=== PATIENT | female | born 1980 | race Caucasian/White ===

== ENCOUNTER → 2016-12-09 | Outpatient (CLI) | payer MEDICAID ==
--- NOTE | 2016-12-09 08:55 | US ---
EXAMINATION TYPE: US thyroid st tissue head/neck DATE OF EXAM: 12/09/2016 COMPARISON: NONE CLINICAL HISTORY: 36-year-old female E04.1 Thyroid Nodule. TECHNIQUE: Multiple sonographic images of the thyroid gland are obtained. FINDINGS: Right Lobe: 3.6 x 1.6 x 1.4 cm Left Lobe: 2.4 x 0.9 x 1.0 cm Isthmus Thickness: 0.3 cm There is diffuse glandular heterogeneity without discrete nodule. Bilateral neck scanned, no evidence of lymphadenopathy. IMPRESSION: Heterogeneous parenchyma with somewhat small thyroid gland. No discrete nodule.
== END | disposition home or self-care (01) ==
LOC: RADUSWWP 07:25
PROVIDERS: ATTEND Family Medicine
DX: E07.89 Other specified disorders of thyroid (principal)
CPT/HCPCS: 76536

== ENCOUNTER → 2019-03-15 | Outpatient (CLI) | payer MEDICAID ==
--- NOTE | 2019-03-15 11:17 | XR ---
Right hip HISTORY: Pain in right hip 2 views of the right hip Bone mineralization, joint spaces and alignment are maintained. Mild hypertrophic changes are present especially at the acetabulum, correlate for possible femoral acetabular impingement. No fracture or dislocation. IMPRESSION: No acute findings. Additional findings above. Hip MRI may be of benefit.
== END | disposition home or self-care (01) ==
LOC: RADXRMAIN 09:46
PROVIDERS: ATTEND Family Medicine
DX: M25.551 Pain in right hip (principal)
CPT/HCPCS: 73502

== ENCOUNTER → 2019-05-22 | Outpatient (CLI) | payer MEDICAID ==
--- NOTE | 2019-05-22 08:52 | US ---
EXAMINATION TYPE: US abdomen complete DATE OF EXAM: 05/22/2019 COMPARISON: NONE CLINICAL HISTORY: R10.11 RUQ Abd pain. EXAM MEASUREMENTS: Liver Length: 12.8 cm Gallbladder Wall: 0.3 cm CBD: 0.2 cm Spleen: 12.4 cm Right Kidney: 11.4 x 4.8 x 4.8 cm Left Kidney: 12.1 x 4.5 x 5.1 cm Pancreas: wnl Liver: wnl Gallbladder: cholelithiasis Evidence for sonographic Hurley's sign: CBD: wnl Spleen: wnl Right Kidney: scattered echogenic foci noted probable stones, small cyst measuring 1.2 x 1.2 x 1.3cm Left Kidney: probable stone measuring 0.5 x 0.4 x 0.6cm Upper IVC: wnl Abd Aorta: bifurcation obscured by overlying bowel gas The liver is homogenous. The intrahepatic portion of the IVC and proximal abdominal aorta are within normal limits. There is evidence of cholelithiasis with gallstone in the region of the gallbladder n dann. No wall thickening or pericholecystic fluid. Common bile duct is unremarkable. The visualized p ortions of the pancreas are homogenous. The spleen is unremarkable. Kidneys are symmetric and free of hydronephrosis. Nonobstructing nephrolithiasis seen bilaterally. IMPRESSION: 1. gallstone in the region of the gallbladder neck. 2. Nonobstructing nephrolithiasis seen bilaterally.
== END | disposition home or self-care (01) ==
LOC: RADUSWWP 07:36
PROVIDERS: ATTEND Family Medicine
DX: K80.20 Calculus of gallbladder without cholecystitis without obstruction (principal); N20.0 Calculus of kidney
CPT/HCPCS: 76700

== ENCOUNTER 2019-10-16 22:34 | Emergency (ER) | payer MEDICAID, OTHER ==
[2019-10-16 22:40] VITALS: RESP 18
[2019-10-16] MEDS ORDERED: IBUPROFEN 600 MG TAB PO STA (22:47)
--- NOTE | 2019-10-16 23:10 | XR ---
EXAMINATION TYPE: XR foot complete RT DATE OF EXAM: 10/16/2019 COMPARISON: NONE HISTORY: Pain TECHNIQUE: 3 views FINDINGS: There is a transverse fracture across the base of the fifth metatarsal. Fracture appears to be healing. There is callus formation. There is no dislocation. Joint spaces are fairly normal. IMPRESSION: Healing nondisplaced fracture of the base of the fifth metatarsal.
--- NOTE | 2019-10-16 23:12 | XR ---
EXAMINATION TYPE: XR ankle complete RT DATE OF EXAM: 10/16/2019 COMPARISON: None. History pain. Comparison none. FINDINGS: Ankle mortise is anatomic. Joint spaces are normal. There is nondisplaced transverse fracture across the base of the fifth metatarsal. There is some mild callus formation. There is an Achilles calcaneal spur. TECHNIQUE: 3 views IMPRESSION: Healing fracture base of the fifth metatarsal. Mild calcaneal spurring.
--- NOTE | 2019-10-16 23:21 | ED ---
General Adult HPI - General Chief complaint: Extremity Injury, Lower Stated complaint: [facility] foot injury Time Seen by Provider: 10/16/19 22:44 Source: patient, RN notes reviewed, old records reviewed Mode of arrival: ambulatory Limitations: no limitations - History of Present Illness Initial comments: 38-year-old female patient presents ED for chief complaint of right foot injury. Patient reports that she was walking at a fairly rapid pace when she rolled her right ankle and felt a pop. Patient is complaining of pain in the right fifth metatarsal region. Patient reports that she does have a history of a fracture in this region which did not require surgery. Patient is having some swelling on the fifth metatarsal region. Denies any other complaints. Systemic: Pt denies fatigue, fever/chills, rash. Pt denies weakness, night sweats, weight loss. Neuro: Pt denies headache, visual disturbances, syncope or pre-syncope. HEENT: Pt denies ocular discharge or irritation, otalgia, rhinorrhea, pharyngitis or notable lymphadenopathy. Cardiopulmonary: Pt denies chest pain, SOB, heart palpitations, dyspnea on exertion. Abdominal/GI: Pt denies abdominal pain, n/v/d. : Pt denies dysuria, burning w/ urination, frequency/urgency. Denies new onset urinary or bowel incontinence. MSK: Pt denies myalgia, loss of strength or function in extremities. Neuro: Pt denies new onset weakness, paresthesias. - Related Data Allergies Allergy/AdvReac Type Severity Reaction Status Date / Time No Known Allergies Allergy Verified 10/16/19 22:39 Review of Systems ROS Statement: Those systems with pertinent positive or pertinent negative responses have been documented in the HPI. ROS Other: All systems not noted in ROS Statement are negative. Past Medical History Past Medical History: No Reported History, Hypertension, Thyroid Disorder Additional Past Medical History / Comment(s): anemia Past Surgical History: Section Past Psychological History: Anxiety, Depression General Exam - General Exam Comments Initial Comments: Constitutional: NAD, AOX3, Pt has pleasant affect. HEENT: NC/AT, trachea midline, neck supple, no lymphadenopathy. External ears appear normal, without discharge. Mucous membranes moist. Eyes PERRLA, EOM intact. There is no scleral icterus. No pallor noted. Cardiopulmonary: RRR, no murmurs, rubs or gallops, no JVD noted. Lungs CTAB in anterior and posterior lawler. No peripheral edema. Abdominal exam: Abdomen soft and non-distended. Abdomen non-tender to palpation in all 4 quadrants. Bowel sounds active in LLQ. No hepatosplenomegaly. No ecchymosis Neuro: CN II-XII grossly intact. No nuchal rigidity. No raccon eyes, no brady sign, no hemotympanum. No cervical spinal tenderness. MSK: Tenderness to the fifth metatarsal region. Neurovascularly intact. No other areas of tenderness. Some swelling is noted to the distal fifth metatarsal region. Posterior tibialis pulse +2. Limitations: no limitations Course Vital Signs 10/16/19 10/16/19 22:35 23:33 Temperature 98.0 F 98.6 F Pulse Rate 101 H 81 Respiratory 18 18 Rate Blood Pressure 170/78 134/93 O2 Sat by Pulse 100 100 Oximetry Medical Decision Making - Medical Decision Making 38-year-old female patient presents to ED for evaluation of right foot injury. Patient has a history of previous fifth metatarsal fracture. Patient will signs blood mild hypertension likely secondary to pain. Physical exam does light tenderness to fifth metatarsal region. There is some localized swelling. Neurovascularly intact. Plain films displayed healing non-displaced fracture of the base of fifth metatarsal. Patient will be placed in a posterior ankle splint. Will be discharged with outpatient with a follow-up. Advised to use crutches and not bear weight on right lower extremity. Case discussed with Dr. Early. Disposition Clinical Impression: Foot fracture Disposition: HOME SELF-CARE Condition: Stable Instructions (If sedation given, give patient instructions): Foot Fracture in Adults (ED) Additional Instructions: Follow-up with primary care provider tomorrow. Return to ER if condition w orsens in any way. Follow up with orthopedic consult tomorrow. Use crutches, do not bear weight on right lower extremity. Continue to wear splint. Is patient prescribed a controlled substance at d/c from ED?: No Referrals: Jonathan Macias DO [Primary Care Provider] - 1-2 days Keon Singh MD [Medical Doctor] - 1-2 days
[2019-10-16 23:34] VITALS: BP 134/93; PULSE 81; TEMP 98.6
== END 2019-10-16 23:39 | disposition home or self-care (01) ==
LOC: EC 22:34
DX: S92.354D Nondisplaced fracture of fifth metatarsal bone, right foot, subsequent encounter for fracture with routine healing (principal); I10 Essential (primary) hypertension; X50.1XXD Overexertion from prolonged static or awkward postures, subsequent encounter; Y92.69 Other specified industrial and construction area as the place of occurrence of the external cause; Y99.0 Civilian activity done for income or pay
CPT/HCPCS: 29515; 99284

== ENCOUNTER → 2021-02-27 | Outpatient (CLI) | payer MEDICAID ==
--- NOTE | 2021-02-27 13:40 | MM ---
Reason for exam: screening (asymptomatic). Baseline mammogram. History: Took hormonal contraceptives for 17 years. Physical Findings: Nurse Summary: 2cm hard palpable lump right axilla (nurse TM). MG 3D Screening Mammo W/Cad Bilateral CC and MLO view(s) were taken. The breast tissue is heterogeneously dense. This may lower the sensitivity of mammography. Focal asymmetry upper outer left breast. These results were verbally communicated with the patient and result sheet given to the patient on 02/27/21. ASSESSMENT: Incomplete: need additional imaging evaluation, BI-RAD 0 RECOMMENDATION: Special view mammogram of the left breast. Manage patient on a clinical basis.
--- NOTE | 2021-02-27 13:41 | MM ---
Reason for exam: additional evaluation requested from abnormal screening. History: Took hormonal contraceptives for 17 years. Physical Findings: Breast exam preformed at baseline screening. MG 3D Work Up W/Cad LT Spot compression CC and LM view(s) were taken of the left breast. Focal asymmetry upper outer quadrant persists 8.3cm from nipple and measures 8.2mm. These results were verbally communicated with the patient and result sheet given to the patient on 02/27/21. ASSESSMENT: Incomplete: need additional imaging evaluation, BI-RAD 0 RECOMMENDATION: Ultrasound of the left breast. Manage patient on a clinical basis.
--- NOTE | 2021-02-27 13:42 | USB ---
Reason for exam: additional evaluation requested from abnormal screening. History: Took hormonal contraceptives for 17 years. US Breast Workup Limited GEORGETTE Right limited breast ultrasound including focal area of concern, retroareolar and axilla demonstrates no cystic or solid lesion seen. Left limited breast ultrasound including focal area of concern, retroareolar and axilla demonstrates a 0.8 x 0.4 x 0.5cm cystic cluster at 3 o'clock. These results were verbally communicated with the patient and result sheet given to the patient on 02/27/21. ASSESSMENT: Benign, BI-RAD 2 RECOMMENDATION: Routine screening mammogram of both breasts in 1 year. Manage patient on a clinical basis.
== END | disposition home or self-care (01) ==
LOC: RADMAMWWP 07:56
PROVIDERS: ATTEND Family Medicine
DX: Z12.31 Encounter for screening mammogram for malignant neoplasm of breast (principal); R92.8 Other abnormal and inconclusive findings on diagnostic imaging of breast
CPT/HCPCS: 77061; 77063; 77065; 77067

== ENCOUNTER → 2021-03-02 | Outpatient (CLI) | payer MEDICAID, OTHER | END | disposition home or self-care (01) | LOC: LABWHC1 12:22 | PROVIDERS: ATTEND Emergency Medicine | DX: Z20.828 Contact with and (suspected) exposure to other viral communicable diseases (principal) | CPT/HCPCS: 87635 ==

== ENCOUNTER → 2021-03-03 | Outpatient (CLI) | payer MEDICAID, OTHER | END | disposition home or self-care (01) | LOC: EC 12:30 | PROVIDERS: ATTEND Emergency Medicine | DX: Z20.822 Contact with and (suspected) exposure to COVID-19 (principal) | CPT/HCPCS: 87635 ==

== ENCOUNTER → 2021-05-01 | Outpatient (CLI) | payer MEDICAID ==
--- NOTE | 2021-05-01 19:25 | US ---
EXAMINATION TYPE: US thyroid st tissue head/neck DATE OF EXAM: 05/01/2021 COMPARISON: 12/09/2016 CLINICAL HISTORY: 40-year-old female E04.9 Nontoxic goiter. TECHNIQUE: Multiple sonographic images of the thyroid gland are obtained. FINDINGS: GLAND SIZE: Right Lobe: 3.4 x 1.6 x 1.5 cm Overall Parenchyma: heterogenous Left Lobe: 2.2 x 1.1 x 1.0 cm Overall Parenchyma: heterogeneous Isthmus Thickness: 0.3 cm NODULES RIGHT: # of nodules measured on right: 1 1. 0.9 X 0.8 x 0.8 cm, mid/lower, solid, TR 4 hypoechoic nodule, which is wider than tall, with ill -defined margins, without echogenic foci. Prior size: Not seen previously LEFT: # of nodules measured on left: 0 ISTHMUS: # of nodules measured in the isthmus: 0 IMPRESSION: 1. Redemonstrated small, heterogeneous thyroid gland. Possible goiter or sequela of chronic hypothyro idism. 2. New 9 mm solid TR 4 nodule on the right. Follow-up recommended.
== END | disposition home or self-care (01) ==
LOC: RADUSWWP 13:29
PROVIDERS: ATTEND Family Medicine
DX: E04.9 Nontoxic goiter, unspecified (principal)
CPT/HCPCS: 76536

== ENCOUNTER → 2022-06-05 | Outpatient (CLI) | payer MEDICAID ==
[2022-06-05 23:16] LABS: HCT 39.3 % (37.2-46.3); HGB 11.2 g/dL (12.0-15.0); MCH 22.7 pg (27.0-32.0); MCHC 28.5 g/dL (32.0-37.0); MCV 79.7 fL (80.0-97.0); Mean Platelet Volume 10.4 fL (9.5-12.2); NRBC Per 100 WBC 0 /100 WBCS (0.0-0.0); Platelet Count 347 X 10*3/uL (140-440); RBC 4.93 X 10*6/uL (4.10-5.20); RDW 25.8 % (11.5-14.5); WBC 11.67 X 10*3/uL (4.50-10.00)
[2022-06-05 23:44] LABS: Basophils % (A) 0.9 %; Eosinophils # (A) 0.39 X 10*3/uL (0.04-0.35); Eosinophils % (A) 3.3 %; Immature Grans, Automated 0.4 %; Lymphocytes # (A) 2.76 X 10*3/uL (0.90-5.00); Lymphocytes % (A) 23.7 %; Monocytes # (A) 0.67 X 10*3/uL (0.20-1.00); Monocytes % (A) 5.7 %
[2022-06-05 23:45] LABS: Anisocytosis (M) 3+; Chol/HDL Ratio 3.37 Ratio; Ferritin 26.3 ng/mL (10.0-291.0); Glucose 78 mg/dL (70-110); Microcytosis (M) 2+
== END | disposition home or self-care (01) ==
LOC: LABWHC1 12:48
PROVIDERS: ATTEND Family Medicine
DX: Z00.00 Encounter for general adult medical examination without abnormal findings (principal); D50.9 Iron deficiency anemia, unspecified; E03.8 Other specified hypothyroidism
CPT/HCPCS: 36415; 80061; 82728; 82947; 84439; 84443; 85025

== ENCOUNTER → 2022-09-09 | Outpatient (CLI) | payer MEDICAID ==
--- NOTE | 2022-09-09 16:03 | P.SLEEP ---
History of Present Illness DATE: 09/09/2022 CONSULTATION/NEW PATIENT EVALUATION HISTORY OF PRESENT ILLNESS/SLEEP-WAKE EVALUATION: 41-year-old lady had been evaluated in the sleep center for possible obstructive sleep apnea hypopnea syndrome. SLEEP SCHEDULE: Usually sleep schedule from 9 AM until 1:30 PM on working days and from 10 PM to 6 AM on weekend. 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 FALLING ASLEEP: No problems with falling asleep, no TV in bedroom. DURING SLEEP: Patient usually sleeps on the back and side position with loud snoring, witnessed episodes of stop breathing during the sleep. Patient wakes up from sleep several times with grinding teeth, and nocturia. No history of hypnogogical hallucinations, sleep paralysis, or cataplexy. DURING THE DAY/WAKE STATE: In the morning patient wake up tired, has difficulties to pay attention, has problems with memory, concentration, anxiety. [place] sleepiness scale is significantly increased to 15. Patient usually does not take naps although. PAST MEDICAL HISTORY: Depression, anxiety, acid reflux, ADD, hypertension, headaches, anemia. PAST SURGICAL HISTORY: 3. MEDICATIONS: Zoloft 100 mg once a day, hydrochlorothiazide 25 mg once a day, Adderall 15 mg once a day, levothyroxine 150 g once a day, iron supplement. SOCIAL HISTORY: Negative for smoking or using alcohol. FAMILY HISTORY: Asthma, sleep apnea. REVIEW OF SYSTEMS: Loud snoring, multiple awakenings from sleep, sleepiness during the day. No fevers. No double vision. No recent chest pain. No shortness of breath. No abdominal pain. No bleeding episodes. No blood in urine. No seizure episodes. PHYSICAL EXAMINATION: GENERAL: A pleasant patient without any distress. VITAL SIGNS: BP 138/92 , HR 83 , RR 12 , weight 204 pounds, height 5 foot 4 inches, body mass index 35.1 . HEENT: PERRLA, EOMI. Evaluation of oropharynx showed tongue protrudes midline, low position of soft palate Mallampati 23, tonsils size 2. NECK: Supple. No JVD. Thyroid is not palpable. 16 inches in circumference. LUNGS: Clear to percussion and to auscultation. Good air exchange. No wheezing or rhonchi. HEART: S1, S2 regular. No murmurs, gallops or rubs. ABDOMEN: Soft and nontender. Bowel sounds are present. No organomegaly appreciated. EXTREMITIES: No clubbing or cyanosis. CLEAN UP HELPER BANQUET: Awake, alert, and oriented x3. Cranial nerves 2 to 7 intact. There is no fasciculation or atrophy noted. No focal deficits observed. ASSESSMENT: 1. Loud snoring, witnessed episodes of stop breathing during the sleep, small oropharyngeal airspace, multiple awakenings from sleep, sleepiness with [place] Sleepiness Scale in very high range of 15, wide neck 16 inches in circumference. Obstructive sleep apnea-hypopnea syndrome. 2. Obesity body mass index 35.1. 3. Hypertension. 4. Headaches. 5 hypothyroidism. 6 . History of anemia. 7. Depression. 8. anxiety. 9 . Acid reflux. 10. History of ADD. 11. Status post 3. 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 PLAN: 1. Polysomnography for evaluation of patient's breathing during sleep. 2. CPAP/BiPAP titration if sleep study confirms obstructive sleep apnea- hypopnea syndrome. 3. Preferable position during sleep on the side. 4. No driving if patient feels any sleepiness. Patient is aware of civil and criminal liability for unsafe driving. 5. Sleep hygiene with regular sleep time for at least 7.5-8 hours. 6. Watching and losing weight. Thank you very much for referring this patient for consultation. Sincerely, Joon Martinez MD, PhD, FAASM. Diplomat of [place] [employer], Sleep Medicine Board by [place] [employer] [place] [employer] [facility] Past Medical History Past Medical History: No Reported History, Hypertension, Thyroid Disorder Additional Past Medical History / Comment(s): anemia Past Surgical History: Section Past Psychological History: Anxiety, Depression Medications and Allergies Allergies Allergy/AdvReac Type Severity Reaction Status Date / Time No Known Allergies Allergy Verified 10/16/19 22:39 Sleep Note - Sleep Note Sleep Note: Temperature: Pulse Rate: Respiratory Rate: Blood Pressure: SpO2: Height: Weight: BMI: Neck Circumference:
== END ==
LOC: SLEEP 15:21
PROVIDERS: ATTEND Internal Medicine
DX: G47.33 Obstructive sleep apnea (adult) (pediatric) (principal); E66.9 Obesity, unspecified; Z68.35 Body mass index [BMI] 35.0-35.9, adult; I10 Essential (primary) hypertension; R51.9 Headache, unspecified; E03.9 Hypothyroidism, unspecified; F32.A Depression, unspecified; D64.9 Anemia, unspecified; F41.9 Anxiety disorder, unspecified; K21.9 Gastro-esophageal reflux disease without esophagitis; Z98.890 Other specified postprocedural states; F98.8 Other specified behavioral and emotional disorders with onset usually occurring in childhood and adolescence; Z99.89 Dependence on other enabling machines and devices; Z79.890 Hormone replacement therapy
CPT/HCPCS: 99211

== ENCOUNTER → 2022-11-26 | Outpatient (CLI) | payer MEDICAID ==
--- NOTE | 2022-11-26 15:20 | P.PN ---
Subjective DATE: 11/26/2022 FOLLOW UP VISIT. Patient returned to sleep center for follow-up visit to discuss results of sleep study and following plan. I discuss results of sleep studies with patient in details. Diagnostic polysomnogram did not show any respiratory abnormalities. Normal oxygenation during the sleep. Very mild periodic limb movements have been documented to 10 times per hour which considered to be normal range by today's criteria. Patient continued to have symptoms of excessive daytime sleepiness. [place] Sleepiness Scale today is increased to 12 while patient is on treatment to with Adderall. . [place] sleepiness scale is[]. MEDICATIONS:1. Adderall 2. Zoloft 100 mg once a day 3. Hydrochlorothiazide 25 mg once a day 4. Levothyroxine 150 g once a day 5. Iron supplement During physical exam: GENERAL: A pleasant patient without any distress. VITAL SIGNS: BP 145-91, HR 82, RR 16, weight 204, temperature 98.4, oxygen saturation at room air 99%. HEENT: PERRLA, EOMI. NECK: Supple. No JVD. LUNGS: Clear to percussion and to auscultation. Good air exchange. No wheezing or rhonchi. HEART: S1, S2 regular. ABDOMEN: Soft and nontender. EXTREMITIES: No clubbing or cyanosis. FELTING MACHINE OPERATOR HELPER: Awake, alert, and oriented x3. No focal deficit. Impressions: 1. No significant respiratory abnormalities have been documented during the sleep test. Normal oxygenation during sleep 2.. Very minimal periodic limb movements have been documented to around 10 times per hour. 3.. Patient continued to have symptoms of excessive daytime daytime sleepiness. Differential diagnosis include to narcolepsy type II. 4. ADHD. 5 Hypothyroidism, history of Dmitri thyroiditis. 6.History of iron deficiency anemia. Low level of iron may increase risk for periodic limb movements. 7 History of depression. 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 multiple sleep latency test for objective evaluation symptoms of excessive daytime sleepiness for differential diagnosis with possible narcolepsy type 2. 2. Sleep hygiene with regular time in bed for at least 8 hours. 3. Precautions related to driving. No driving if feel any sleepiness. Patient is aware about civil and criminal liability for unsafe driving, promised to follow recommendations. 4. Follow-up after multiple sleep latency test to discuss results and plan of the treatment. Thank you very much for allowing me to participate in the management of your patient. Joon Martinez MD, PhD, FAASM. Diplomat of [place] [employer], Sleep Medicine Board by [place] [employer] [facility] [place]
== END ==
LOC: 3 N SLEEP 14:23
PROVIDERS: ATTEND Internal Medicine
DX: G47.61 Periodic limb movement disorder (principal); F90.9 Attention-deficit hyperactivity disorder, unspecified type; F32.A Depression, unspecified; F41.9 Anxiety disorder, unspecified; E06.3 Autoimmune thyroiditis; D50.9 Iron deficiency anemia, unspecified
CPT/HCPCS: 99212

== ENCOUNTER 2024-03-06 10:57 | Day surgery (SDC) | payer MEDICAID ==
[2024-03-01 16:22] VITALS: BMI 30.7
--- NOTE | 2024-03-06 07:32 | P.GSHP ---
History of Present Illness H&P Date: 03/06/24 Chief Complaint: Chronic cholecystitis 43-year-old female here for elective cholecystectomy. Last seen in the office 2 months ago. Patient with a 4-year history of intermittent right upper quadrant pain. Worse after meals. Recent labs show normal liver enzymes. Past Medical History Past Medical History: Hypertension, Thyroid Disorder Additional Past Medical History / Comment(s): Anemia. Heartburn frequent. Daily headaches. Not taking any medication for blood pressure. History of Any Multi-Drug Resistant Organisms: None Reported Past Surgical History: Section Additional Past Surgical History / Comment(s): [place] teeth removed. Past Anesthesia/Blood Transfusion Reactions: Postoperative Nausea & Vomiting (PONV) Additional Past Anesthesia/Blood Transfusion Reaction / Comment(s): Severe PONV. Smoking Status: Never smoker - Past Family History Mother Family Medical History: No Reported History Medications and Allergies Home Medications Medication Instructions Recorded Confirmed Type Dextroamphetamine/Amphetamine 20 mg PO DAILY PRN 03/01/24 03/01/24 History [Adderall Xr 20 mg Capsule] Levothyroxine Sodium 150 mcg PO QAM 03/01/24 03/01/24 History Multivitamins, Thera [Multivitamin 1 tab PO DAILY 03/01/24 03/01/24 History (formulary)] Sertraline [Zoloft] 100 mg PO QAM 03/01/24 03/01/24 History Allergies Allergy/AdvReac Type Severity Reaction Status Date / Time No Known Allergies Allergy Verified 03/01/24 16:04 Surgical - Exam Physical exam: General: Well-developed, well-nourished HEENT: Normocephalic, sclerae nonicteric Abdomen: Nontender, nondistended Extremities: No edema Neuro: Alert and oriented Assessment and Plan (1) Chronic cholecystitis Narrative/Plan: 43-year-old female with chronic cholecystitis. Will proceed with laparoscopic, possible open cholecystectomy. Risks of bleeding, infection, bile leak, bile duct injury, retained common bile duct stone, trocar injury, conversion to an open procedure, hernia, anesthesia related complications were reviewed. The patient understands and wishes to proceed. Status: Acute Code(s): K81.1 - CHRONIC CHOLECYSTITIS SNOMED Code(s): 17986072
[2024-03-06] MEDS: IV FLUID CONTINUATION 1,000 ML IV ONE ×4 (11:27→15:06)
[2024-03-06] MEDS: MIDAZOLAM 2 MG/2 ML VIAL IVP ONE (11:42)
[2024-03-06] MEDS: ACETAMINOPHEN TAB 500 MG TAB PO PRN (11:44)
[2024-03-06] MEDS: SCOPOLAMINE 1 MG/72 HR PATCH TRANSDERM STA (11:45)
[2024-03-06] MEDS ORDERED: MIDAZOLAM 2 MG/2 ML VIAL IV ONE (11:48)
[2024-03-06] MEDS: HEPARIN SODIUM,PORCINE 5,000 UNIT/ML 1 ML VIAL SQ PRN (11:50)
[2024-03-06] MEDS: DEXAMETHASONE SOD PHOSPHATE 4 MG/ML 1 ML VIAL IV ONE (11:50)
[2024-03-06] MEDS: ONDANSETRON 4 MG/2 ML VIAL IVP ONE (11:50)
[2024-03-06] MEDS: LACTATED RINGERS 1,000 ML IV SCH (11:51)
[2024-03-06] MEDS ORDERED: PROPOFOL 10 MG/ML 20 ML VIAL IV ONE (12:45)
[2024-03-06] MEDS ORDERED: NEOSTIGMINE 1 MG/ML 10 ML VIAL ONE (12:45)
[2024-03-06] MEDS ORDERED: ROCURONIUM 10 MG/ML (5 ML VIAL) IV ONE (12:45)
[2024-03-06] MEDS ORDERED: SUCCINYLCHOLINE CHLORIDE 200 MG/10 ML VIAL IV ONE (12:45)
[2024-03-06] MEDS ORDERED: diphenhydrAMINE 50 MG/ML 1 ML VIAL ONE (12:45)
[2024-03-06] MEDS ORDERED: HYDROmorphone (PF) 1 MG/ML ONE (12:45)
[2024-03-06] MEDS ORDERED: LIDOCAINE 1% INJ 10MG/ML (20 ML MDV) ONE (12:45)
[2024-03-06] MEDS ORDERED: MIDAZOLAM 2 MG/2 ML VIAL ONE (12:45)
[2024-03-06] MEDS ORDERED: GLYCOPYRROLATE 0.2 MG/ML 2 ML VIAL ONE (12:45)
[2024-03-06] MEDS ORDERED: fentaNYL (PF) 50 MCG/ML 2 ML AMP ONE (12:45)
[2024-03-06] MEDS ORDERED: KETOROLAC 15 MG/ML 1 ML VIAL ONE (12:45)
[2024-03-06] MEDS: LIDOCAINE 1%-EPI 1:100,000 20 ML VIAL SQ ONE ×3 (13:13)
[2024-03-06 14:12] VITALS: TEMP 97.6
--- NOTE | 2024-03-06 14:15 | P.OP ---
Date of Procedure: 03/06/24 Procedure(s) Performed: PREOPERATIVE DIAGNOSIS: Chronic cholecystitis POSTOPERATIVE DIAGNOSIS: Same PROCEDURE: Laparoscopic cholecystectomy SURGEON: Nelda EBL: Minimal see anesthesia record ANESTHESIA: Gen. COMPLICATIONS: None OPERATIVE PROCEDURE: The patient was brought and placed on the operating room table in the supine position. The patient was placed under general anesthesia at that time. The abdomen was prepped and draped in the usual sterile fashion. A small vertical infraumbilical incision was made. The fascia was grasped with the Gallo forceps. The fascia was retracted anteriorly. The Veress needle was advanced into the peritoneal cavity. The saline drop test was normal. Insufflation took place up to 15 mmHg. A 5 mm optical trocar was advanced and the peritoneal cavity. 2 additional 5 mm trochars were placed in the right upper quadrant under direct visualization. A 12 mm trocar was advanced into the epigastric incision site. The gallbladder was retracted superiorly and laterally. The peritoneum overlying the infundibulum was bluntly dissected. The patient's cystic duct was visualized. The junction between the cystic duct common and hepatic duct was identified. The critical view of safety was achieved after blunt dissection. The cystic duct was then divided after placement of 3 12 mm clips on the patient's side and one on the specimen side. The cystic artery was identified and clipped as well. A small vessel was seen along the gallbladder fossa and clipped as well. The gallbladder was then removed from the liver bed using electrocautery. The gallbladder was then removed from the epigastric trocar site with an Endo Catch bag. The gallbladder fossa was irrigated with saline. There was no evidence of any bleeding or biliary drainage seen. The fascia at the 12 millimeter site was closed using a Homar-Duyen 0 Vicryl stitch. The trochars were then removed. The skin at all 4 sites was closed using a 4-0 Monocryl stitch. Skin glue was utilized on the incision sites. At the end of this procedure the sponge and needle counts were correct. DISPOSITION: Stable to the recovery room
[2024-03-06] MEDS: HYDROmorphone 0.5 MG/0.5 ML SYRINGE IVP PRN (14:35)
[2024-03-06] MEDS: droPERidol 5 MG/2 ML VIAL IVP ONE (14:37)
[2024-03-06 16:01] VITALS: BP 145/80; PULSE 71; RESP 17
[2024-03-06] MEDS ORDERED: ACETAMINOPHEN TAB 325 MG TAB PO SCH (18:00)
[2024-03-06] MEDS ORDERED: IBUPROFEN 600 MG TAB PO SCH (21:00)
== END 2024-03-06 16:12 | disposition home or self-care (01) ==
LOC: OR 10:57
PROVIDERS: ATTEND Surgery
DX: K80.10 Calculus of gallbladder with chronic cholecystitis without obstruction (principal); I10 Essential (primary) hypertension; E03.9 Hypothyroidism, unspecified; F41.8 Other specified anxiety disorders; F90.9 Attention-deficit hyperactivity disorder, unspecified type; F17.200 Nicotine dependence, unspecified, uncomplicated; Z79.890 Hormone replacement therapy; Z79.899 Other long term (current) drug therapy
CPT/HCPCS: 81025; 88304; 47562; J2250; J0330; J1200; J1644; J1100; J2710; J0690; J2405; J2003; J3010; J1171 ×2; J1885; J2704; J1790; J1596